=== PATIENT | male | born 1985 | race Two or more races ===

== ENCOUNTER 2023-01-24 15:05 | Outpatient (REF) | payer MEDICAID, SELFPAY ==
[2023-01-24 18:09] LABS: Anion Gap 16 (12-20); Blood Urea Nitrogen 11 mg/dL (9-16); Calcium 9.9 mg/dL (8.4-10.2); Carbon Dioxide 24 mmol/L (22-29); Chloride 106 mmol/L (96-108); Estimated Glomerular Filt Rate > 60; Glucose Random 81 mg/dL (60-115); Potassium 4.1 mmol/L (3.3-5.1); Sodium 142 mmol/L (135-145)
== END 2023-01-24 15:06 | disposition home or self-care (01) ==
LOC: HO.HHCL 15:05
PROVIDERS: Visit Provider Internal Medicine Geriatric Medicine
DX: Z01.818 Encounter for other preprocedural examination (principal); M25.561 Pain in right knee; G89.29 Other chronic pain; Z89.231 Acquired absence of right shoulder
CPT/HCPCS: 36415; 80048; 85025; 85610

== ENCOUNTER 2023-01-27 10:04 | Outpatient (REF) | payer MEDICAID, SELFPAY ==
--- NOTE | ~2023-01-27 | XR_ITS ---
EXAMINATION: XR SHOULDER, RIGHT CLINICAL INFORMATION: Right shoulder pain for 2 months. Unable to raise arm. COMPARISON: Right shoulder 07/19/2016. TECHNIQUE: AP external rotation, Grashey, scapular Y, and axillary views of the right shoulder. FINDINGS: The bones and soft tissues are normal. No fracture. Glenohumeral and acromioclavicular alignment is anatomic with normal joint space. No abnormal soft tissue calcifications. XR/XR shoulder RT min 2V IMPRESSION: Normal right shoulder.
== END 2023-01-27 10:05 | disposition home or self-care (01) ==
LOC: HO.HHCX 10:04
PROVIDERS: Visit Provider Internal Medicine Geriatric Medicine
DX: M25.511 Pain in right shoulder (principal)
CPT/HCPCS: 73030

== ENCOUNTER 2023-05-10 11:04 | Outpatient (AMB) | payer MEDICAID, SELFPAY ==
--- NOTE | 2023-05-10 11:21 | MHC.OFFVIS ---
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 The patient states that he injured his shoulder approximately 6 months ago while lifting heavy object. Since that time his symptoms have gotten somewhat worse. He reports weakness with lifting his right hand above shoulder height. He denies any numbness or tingling in either of his upper extremities. He has had injections in the past which gave him minimal relief. He has also tried Tylenol and anti-inflammatory medicines which is only mild relief. Allergies No Known Allergies Allergy (Unverified 05/10/23 11:23) PFSH Surgical History (Updated 05/10/23 @ 11:36 by FRANCES Melendez) Hx of right knee surgery Social History (Updated 05/10/23 @ 11:35 by FRANCES Melendez) Patient Tobacco Use Status: Never used Tobacco Substance Use Type: Marijuana Current occupational status: unemployed Physical Exam Vital Signs: BMI result Body Mass Index 33.0 Const Other: Well-nourished well-developed very friendly male awake alert and oriented x3 in no acute distress Extrem Other: Bilateral upper extremity examination shows good capillary refill, no skin lesions noted, normal sensation light touch Right shoulder examination shows slightly decreased range of motion when compared to his left shoulder, 4+ out of 5 strength with supraspinatus testing, tenderness over his acromioclavicular joint, no instability Results Reviewed Results Reviewed: X-rays of the patient's right shoulder show moderate acromioclavicular joint narrowing, a type 2 acromion, no acute bony abnormalities Assessment & Plan Assessment & Plan (1) Right shoulder pain: Code(s): M25.511 - Pain in right shoulder Plan: Mr. Vaughn presents with right shoulder pain due to impingement syndrome, possible rotator cuff tearing and possible acromioclavicular joint sprain. Activity modifications were discussed at length with the patient. We will hold off on an MRI for now. He will contact me prior to his follow-up appointment in 2-3 months should his symptoms worsen in any way. If his weakness continues in the future I will order an MRI to further evaluate the status of his rotator cuff tendons. Feel free to call me at any time should questions regarding his orthopedic management arise. Thank you very much for asking me to see this very friendly gentleman. I spent 22 minutes in reviewing the patient's records and imaging studies, seeing the patient and documenting in the medical record. Coding Level of Care Code New Pt Level 2 (74441) Diagnoses Right shoulder pain M25.511
[2023-05-10 11:23] VITALS: BMI 33.0
== END 2023-05-10 12:03 | disposition home or self-care (01) ==
PROVIDERS: PCP Internal Medicine Geriatric Medicine; Visit Provider Orthopaedic Surgery
DX: M25.511 Pain in right shoulder (principal)
CPT/HCPCS: 99202

== ENCOUNTER → 2023-05-10 11:04 | Outpatient (BNVA) | payer MEDICAID, SELFPAY | PROVIDERS: PCP Internal Medicine Geriatric Medicine; Visit Provider Orthopaedic Surgery | DX: M25.511 Pain in right shoulder (principal) | CPT/HCPCS: 99202 ==

== ENCOUNTER 2023-05-30 10:15 | Outpatient (REF) | payer MEDICAID, SELFPAY ==
[2023-05-30 11:46] LABS: Alanine Aminotransferase 13 U/L (0-40); Albumin Level 4.2 g/dL (3.5-5.0); Alkaline Phosphatase 68 U/L (39-117); Anion Gap 11 (12-20); Aspartate Amino Transferase 14 U/L (5-37); Bilirubin Total 0.5 mg/dL (0.0-1.0); Blood Urea Nitrogen 15 mg/dL (9-16); Calcium 9.6 mg/dL (8.4-10.2); Carbon Dioxide 27 mmol/L (22-29); Chloride 105 mmol/L (96-108); Cholesterol 181 mg/dL (<200); Estimated Glomerular Filt Rate > 60; Glucose Random 90 mg/dL (60-115); HDL Cholesterol 38 mg/dL (>40); LDL Cholesterol Calculated 131 mg/dL (<100); Potassium 4.3 mmol/L (3.3-5.1); Sodium 139 mmol/L (135-145); Total Protein 7.3 g/dL (6.5-8.0); Triglycerides 61 mg/dL (<150)
[2023-05-30 11:52] LABS: HBsAGNum1 0.35 S/CO (0.00-0.99); Hepatitis B Surface Antigen Negative (Negative)
[2023-05-30 11:55] LABS: HBS Num1 95.84 mIU/mL (0-7.99); HBc Num1 0.07 S/CO (0.00-0.79); HIV AB/AG Nonreactive (Nonreactive); HIV Num 1 0.05 S/CO (0.00-0.99); Hepatitis B Core Antibody Nonreactive (Nonreactive); ~HepC Num1 0.03 S/CO (0.00-0.79); ~Hepatitis B Surface Antibody REACTIVE (Nonreactive); ~Hepatitis C Antibody Nonreactive (Nonreactive)
[2023-05-30 12:53] LABS: CT PCR NOT DETECTED (Not Detect.); NG PCR NOT DETECTED (Not Detect.)
[2023-05-31 14:52] LABS: RPR Rapid Plasma Reagin NON-REACTIVE (NON-REACTIVE)
== END 2023-05-30 10:16 | disposition home or self-care (01) ==
LOC: HO.HHCL 10:15
PROVIDERS: Visit Provider Internal Medicine Geriatric Medicine
DX: Z00.00 Encounter for general adult medical examination without abnormal findings (principal); Z11.3 Encounter for screening for infections with a predominantly sexual mode of transmission; Z13.1 Encounter for screening for diabetes mellitus; Z13.220 Encounter for screening for lipoid disorders; G89.29 Other chronic pain; M25.561 Pain in right knee
CPT/HCPCS: 0353U; 36415; 80053; 80061; 86592; 86704; 86706; 86803; 87340; 87389

== ENCOUNTER 2023-06-21 10:18 | Outpatient (AMB) | payer MEDICAID, SELFPAY ==
--- NOTE | 2023-06-21 10:29 | MHC.OFFVIS ---
Intake Vital Signs 06/21/23 10:33 Height 5 ft 10 in Weight 230 lb BMI 33.0 Intake Visit Reasons: ov- right shoulder pain Intake Note: Alina 38 year old male presents today with complaints of right shoulder pain and weakness. The patient states that he injured his shoulder approximately 8 months ago while lifting heavy object. Since that time his symptoms have gotten worse in spite of continued non operative treatments. He reports weakness with lifting his right hand above shoulder height. He denies any numbness or tingling in either of his upper extremities. He has had injections in the past which gave him minimal relief. He has also tried Tylenol and anti-inflammatory medicines which is only mild relief. He has done physical therapy for 12 weeks over the last 6 months which aggravated his pain. Allergies No Known Allergies Allergy (Unverified 06/21/23 10:33) Medication List - Last Reconciled 06/21/23 by Jorge Shaikh MD No Known Home Meds PFS Surgical History Hx of right knee surgery Social History Patient Tobacco Use Status: Never used Tobacco Substance Use Type: Marijuana Current occupational status: unemployed Physical Exam Vital Signs: BMI result Body Mass Index 33.0 Const Other: Well-nourished well-developed very friendly male awake alert and oriented x3 in no acute distress Extrem Other: Bilateral upper extremity examination shows good capillary refill, no skin lesions noted, normal sensation light touch Right shoulder examination shows decreased range of motion when compared to his left shoulder, 4+ out of 5 strength with supraspinatus testing, positive impingement signs, tenderness over his acromioclavicular joint, no instability Results Reviewed Results Reviewed: X-rays of the patient's right shoulder show severe acromioclavicular joint narrowing, a type 2 acromion, no acute bony abnormalities Assessment & Plan Assessment & Plan (1) Right shoulder pain: Code(s): M25.511 - Pain in right shoulder Plan Mr. Vaughn presents with progressively worsening right shoulder pain and weakness possibly due to a full-thickness rotator cuff tear. Thus, I will send the patient for an MRI of his right shoulder for further evaluation. I will see him back once the MRI is completed to discuss the findings and treatment options. He will continue with his activity modifications in the meantime. Feel free to call me at any time should questions regarding his orthopedic management arise. I spent 22 minutes in reviewing the patient's records and imaging studies, seeing the patient and documenting in the medical record. Orders: Orders MR shoulder RT wo con Today M25.511 - Pain in right shoulder Coding Level of Care Code Est Pt Level 2 (55225) Diagnoses Right shoulder pain M25.511
[2023-06-21 10:33] VITALS: BMI 33.0
== END 2023-06-21 10:46 | disposition home or self-care (01) ==
PROVIDERS: PCP Internal Medicine Geriatric Medicine; Visit Provider Orthopaedic Surgery
DX: M25.511 Pain in right shoulder (principal)
CPT/HCPCS: 99212

== ENCOUNTER → 2023-06-21 10:18 | Outpatient (BNVA) | payer MEDICAID, SELFPAY | PROVIDERS: PCP Internal Medicine Geriatric Medicine; Visit Provider Orthopaedic Surgery | DX: M25.511 Pain in right shoulder (principal) | CPT/HCPCS: 99212 ==

== ENCOUNTER 2023-09-08 08:48 | Outpatient (REF) | payer MEDICAID, SELFPAY | END 2023-09-08 08:49 | disposition home or self-care (01) | LOC: HO.MRI 08:48 | PROVIDERS: PCP Internal Medicine Geriatric Medicine; Visit Provider Orthopaedic Surgery | DX: Z13.89 Encounter for screening for other disorder (principal) ==

== ENCOUNTER 2023-10-27 10:50 | Outpatient (AMB) | payer MEDICAID, SELFPAY ==
--- NOTE | 2023-10-27 10:57 | A.OFFVIS_ITS ---
Intake Vital Signs 10/27/23 10:58 Height 5 ft 10 in Weight 230 lb BMI 33.0 Intake Visit Reasons: Right Shoulder MRI Review- N/S last appt Intake Note: Alina 38 year old male presents today with complaints of right shoulder pain. The patient states that he injured his shoulder approximately 10 months ago while lifting heavy object. Since that time his symptoms have gotten worse in spite of continued non operative treatments. He reports mild weakness with lifting his right hand above shoulder height. He denies any numbness or tingling in either of his upper extremities. He has had injections in the past which gave him minimal relief. He has also tried Tylenol and anti-inflammatory medicines which is only mild relief. He has done physical therapy for 12 weeks over the last 6 months which aggravated his pain. Allergies No Known Allergies Allergy (Verified 10/27/23 11:13) Medication List - Last Reconciled 10/28/23 by Jorge Shaikh MD No Known Home Meds [facility] Surgical History Hx of right knee surgery Social History Patient Tobacco Use Status: Never used Tobacco Substance Use Type: Marijuana Current occupational status: unemployed Physical Exam Vital Signs: BMI result Body Mass Index 33.0 Const Other: Well-nourished well-developed very friendly male awake alert and oriented x3 in no acute distress Extrem Other: Bilateral upper extremity examination shows good capillary refill, no skin lesions noted, normal sensation light touch Right shoulder examination shows slightly decreased range of motion when compared to his left shoulder, 4+ out of 5 strength with supraspinatus testing, positive impingement signs, tenderness over his acromioclavicular joint, no instability Results Reviewed Results Reviewed: MRI of the patient's right shoulder show severe acromioclavicular joint narrowing, a type 3 acromion, signal change within the supraspinatus tendon most likely due to rotator cuff tendinosis Assessment & Plan Assessment & Plan (1) Right shoulder pain: Code(s): M25.511 - Pain in right shoulder Plan Mr. Vaughn presents with progressively worsening right shoulder pain due to impingement syndrome, acromioclavicular joint arthritis and rotator cuff tendinosis. I had a lengthy discussion with the patient regarding the treatment options. At this point he has failed continued non operative treatments. The risks and benefits of right shoulder surgery were discussed at length with the patient. The patient wishes to proceed with surgery. Surgery will most likely involve right shoulder diagnostic arthroscopy with distal clavicle excision and acromioplasty. The patient will be scheduled for next available date. He will follow-up as instructed. Feel free to call me at any time should questions reg arding his orthopedic management arise. I spent 22 minutes in reviewing the patient's records and imaging studies, seeing the patient and documenting in the medical record. Coding Level of Care Code Est Pt Level 2 (59505) Diagnoses Right shoulder pain M25.511
[2023-10-27 10:58] VITALS: BMI 33.0
== END 2023-10-27 11:28 | disposition home or self-care (01) ==
PROVIDERS: PCP Internal Medicine Geriatric Medicine; Referring Provider Internal Medicine Geriatric Medicine; Visit Provider Orthopaedic Surgery
DX: M25.511 Pain in right shoulder (principal)
CPT/HCPCS: 99213

== ENCOUNTER → 2023-10-27 10:50 | Outpatient (BNVA) | payer MEDICAID, SELFPAY | PROVIDERS: PCP Internal Medicine Geriatric Medicine; Visit Provider Orthopaedic Surgery | DX: M25.511 Pain in right shoulder (principal) | CPT/HCPCS: 99212 ==

== ENCOUNTER 2024-02-22 14:14 | Outpatient (AMB) | payer MEDICAID, SELFPAY ==
--- NOTE | 2024-02-22 14:16 | MHC.OFFVIS ---
Intake Visit Reasons: Preop RT Should 03/02/24 Intake Note: Dev is a 38 year old male who presents with complaints of progressively worsening right shoulder pain. He describes his pain as sharp and severe in nature. Pain has gotten worse over the last year in spite of continued non operative treatments. He has done physical therapy which aggravated his pain. He has also tried Tylenol and anti-inflammatory medicines which gave him minimal relief. He reports mild weakness when lifting his right hand above shoulder height. Most of the pain is along the superior and lateral aspects of his shoulder. He has had injections in the past which gave him no relief. to the office today for a Preop RT Should 03/02/24 . Allergies No Known Allergies Allergy (Verified 02/22/24 14:16) Medication List - Last Reconciled 02/22/24 by Jorge Shaikh MD aripiprazole 5 mg PO BEDTIME celecoxib 200 mg PO BID meclizine 25 mg PO .prn PFSH Surgical History Hx of right knee surgery Social History Patient Tobacco Use Status: Never used Tobacco Substance Use Type: Marijuana Current occupational status: unemployed Physical Exam Const Other: Well-nourished well-developed very friendly male awake alert and oriented x3 in no acute distress Extrem Other: Bilateral upper extremity examination shows good capillary refill, no skin lesions noted, normal sensation light touch Right shoulder examination shows slightly decreased range of motion when compared to his left shoulder, 4+ out of 5 strength with supraspinatus testing, positive impingement signs, tenderness over his acromioclavicular joint, no instability Results Reviewed Results Reviewed: MRI of the patient's right shoulder show severe acromioclavicular joint narrowing, a type 3 acromion, signal change within the supraspinatus tendon most likely due to rotator cuff tendinosis versus partial-thickness tearing Assessment & Plan Assessment & Plan (1) Impingement of right shoulder: Code(s): M25.811 - Other specified joint disorders, right shoulder Category: Medical Plan Mr. Vaughn presents with progressively worsening right shoulder pain due to impingement syndrome and acromioclavicular joint arthritis. I had a lengthy discussion with the patient regarding the treatment options. At this point he has failed continued non operative treatments. The risks and benefits of right shoulder surgery were discussed at length with the patient. The patient wishes to proceed with surgery. Surgery will most likely involve right shoulder diagnostic arthroscopy with arthroscopic distal clavicle excision and acromioplasty. The patient was given a prescription for oxycodone at his preoperative appointment. He will follow up as scheduled. Feel free to call me at any time should questions regarding his orthopedic management arise. I spent 22 minutes in reviewing the patient's records and imaging studies, seeing the patient and documenting in the medical record. Medications: New oxycodone Partial Fill upon patient request. 10 mg (2 x 5 mg) PO Q4H 1 week PRN 40 tabs 0RF pain Coding Level of Care Code Est Pt Level 3 (64378) Diagnoses Impingement of right shoulder M25.811
== END 2024-02-22 14:35 | disposition home or self-care (01) ==
PROVIDERS: PCP Internal Medicine Geriatric Medicine; Referring Provider Internal Medicine Geriatric Medicine; Visit Provider Orthopaedic Surgery
DX: M25.811 Other specified joint disorders, right shoulder (principal)
CPT/HCPCS: 99024

== ENCOUNTER → 2024-02-22 14:14 | Outpatient (BNVA) | payer MEDICAID, SELFPAY | PROVIDERS: PCP Internal Medicine Geriatric Medicine; Visit Provider Orthopaedic Surgery | DX: M25.811 Other specified joint disorders, right shoulder (principal) | CPT/HCPCS: 99212 ==

== ENCOUNTER 2024-03-02 08:49 | Day surgery (SDC) | payer MEDICAID, SELFPAY ==
[2024-02-23 12:34] VITALS: BP 117/65; PULSE 63; RESP 16; O2SAT 97; BMI 33.1
[2024-02-23 13:14] LABS: MANUAL DIFF FLAG NO
[2024-02-23 13:40] LABS: Basophils Absolute Auto 0.1 X10*3/uL (0.0-0.2); Basophils Percent Auto 0.8 % (0-2); Eosinophils Absolute Auto 0.2 X10*3/uL (0.0-0.4); Eosinophils Percent Auto 2.6 % (0-4); Hematocrit 47.8 % (42.0-52.0); Imm Gran Abs Auto 0.01 X10*3/uL (0.00-0.03); Imm Gran Pct Auto 0.2 % (0.0-0.4); Lymphocytes Absolute Auto 2.7 X10*3/uL (1.2-4.9); Lymphocytes Percent Auto 44.3 % (20-40); Mean Corpuscular HGB Conc 33.5 g/dl (31.0-36.0); Mean Corpuscular Hemoglobin 30.8 pg (27.0-33.0); Mean Corpuscular Volume 91.9 fL (80.0-98.0); Mean Platelet Volume 10.1 fL (9.4-12.4); Monocytes Absolute Auto 0.4 X10*3/uL (0.1-1.2); Monocytes Percent Auto 5.8 % (2-11); Neutrophils Absolute Auto 2.8 x10*3/uL (2.0-8.3); Neutrophils Percent Auto 46.3 % (45-73); Platelet Count 280 X10*3/uL (160-400); White Blood Count 6.1 X10*3/uL (4.8-10.8)
[2024-02-23 14:10] LABS: Anion Gap 12 (12-20); Blood Urea Nitrogen 13 mg/dL (9-16); Calcium 10.2 mg/dL (8.4-10.2); Carbon Dioxide 27 mmol/L (22-29); Chloride 106 mmol/L (96-108); Creatinine Clr Calc Pharmacy 123.8; Estimated Glomerular Filt Rate > 60; Glucose Random 76 mg/dL (60-115); Potassium 4.3 mmol/L (3.3-5.1); Sodium 141 mmol/L (135-145)
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
[2024-03-02] VITALS (10 sets, daily range): BP systolic 102–127; BP diastolic 56–73; PULSE 62–71; RESP 12–19; TEMP 36.1–36.6; O2SAT 96–100
--- NOTE | 2024-03-02 09:14 | PC.NURSE ---
last smoked marijuana yesterday
[2024-03-02] MEDS: Lactated Ringers 1,000 ML 100 ML IVCONT (09:28)
--- NOTE | 2024-03-02 10:06 | PC.NURSE ---
timeout completed prior to regional block at 1002 pt tolerated well the block vss
--- NOTE | 2024-03-02 12:03 | P.BOP_ITS ---
Brief Operative Note Date of Service: 03/02/24 Pre-op diagnosis: Right shoulder impingement syndrome, right shoulder acromioclavicular joint arthritis Post-op diagnosis: same Procedure: Right shoulder diagnostic arthroscopy with right shoulder arthroscopic distal clavicle excision, right shoulder arthroscopic acromioplasty Implants: None Surgeon: Jorge Shaikh MD Anesthesia: GETA and regional Was an Research Quality Assurance Analyst used for this Procedure?: No Estimated blood loss (mL): 10 Pathology: none sent Condition: stable Disposition: PACU
--- NOTE | 2024-03-02 12:03 | W.PM.OPN ---
Operative Note Operative Note Date of Service: 03/02/24 Narrative: After the patient was identified as Dev Vaughn and his right shoulder was initialed by myself the patient was brought to the holding area where a right shoulder interscalene regional block was performed by the anesthesiologist in routine fashion. The patient was then brought to the operating room where general anesthesia was induced by the anesthesiologist in routine fashion. The patient was given 2 g of IV Ancef preoperatively for infection prophylaxis. Examination under anesthesia of the patient's right shoulder showed full passive range of motion of the patient's left shoulder when compared to the left. The patient was gently positioned in the beach chair position with all bony prominences well padded. The patient's right shoulder region and upper extremity were prepped and draped in sterile fashion. A formal time-out was completed. A #11 scalpel blade was used to make a posterior portal 2 cm inferior and 1 cm medial to the posterolateral corner of the acromion. Blunt trocar technique was used to enter the glenohumeral joint in routine fashion. An anterior portal was made just lateral to the coracoid process after proper positioning was confirmed using a spinal needle. Diagnostic arthroscopy showed minimal degenerative changes of the glenoid and humeral head articular surfaces. There was no evidence of rotator cuff tearing. There was no evidence of injury to the biceps tendon or its insertion onto the glenoid. There was no inflammation of the anterior joint capsule. The arthroscope was then placed from the posterior portal into the subacromial space. A lateral portal was made 2 fingerbreadths lateral to the anterior lateral corner of the acromion. The ArthroCare Wand was used to ablate soft tissues along the undersurface of the acromion as well as to excise the coracoacromial ligament. There was a sharp spur along the undersurface of the acromion which was removed using the hooded bur. The arthroscope was then placed into the lateral portal and the acromioplasty was completed with the bur in the posterior portal using the posterior aspect of the acromion as a cutting block. The ArthroCare Wand was then brought in through the anterior portal and was used to ablate soft tissues along the acromioclavicular joint and distal clavicle. The posterior and superior ligamentous structures were left intact. A distal clavicle excision of 8 mm was performed using the hooded bur. Any remaining bursal tissue was removed using the arthroscopic shaver. The subacromial space was irrigated and then drained. All arthroscopic instruments were removed. The 3 portals were closed with 3-0 nylon interrupted suture. The subacromial space was injected with Marcaine. Dry sterile dressing was placed over all incisions. The patient's right upper extremity was placed into a sling. The patient was awoken and extubated in the operating room. The patient was transferred to the recovery room in stable condition.
[2024-03-02] MEDS: cefTRIAXone sodium 1 GM in 0.9 % Sodium Chloride 50 ML IV (12:16)
[2024-03-02] MEDS: ondansetron HCL 4 MG/2 ML VIAL IVPUSH (12:23)
== END 2024-03-02 13:45 | disposition home or self-care (01) ==
PROVIDERS: Anesthesiology; PCP Internal Medicine Geriatric Medicine; Visit Provider Orthopaedic Surgery
PROC: (CPT 29805; principal; 2024-03-02 11:00)
DX: M75.41 Impingement syndrome of right shoulder (principal); M19.011 Primary osteoarthritis, right shoulder
CPT/HCPCS: 29824; 29826; 36415; 80048; 85025; J0131; J0171; J0665; J0690; J0696; J1100; J2250; J2405; J2704; J2795; J3010

== ENCOUNTER → 2024-03-02 08:49 | Outpatient (BNV) | payer MEDICAID, SELFPAY | PROVIDERS: PCP Internal Medicine Geriatric Medicine; Visit Provider Orthopaedic Surgery | DX: M75.41 Impingement syndrome of right shoulder (principal); M19.011 Primary osteoarthritis, right shoulder | CPT/HCPCS: 29824; 29826 ==

== ENCOUNTER 2024-03-15 11:17 | Outpatient (AMB) | payer MEDICAID, SELFPAY ==
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
== END 2024-03-15 12:12 | disposition home or self-care (01) ==
PROVIDERS: PCP Internal Medicine Geriatric Medicine; Visit Provider Physician Assistant
DX: M25.811 Other specified joint disorders, right shoulder (principal)
CPT/HCPCS: 99024

== ENCOUNTER → 2024-03-15 11:17 | Outpatient (BNVA) | payer MEDICAID, SELFPAY | PROVIDERS: PCP Internal Medicine Geriatric Medicine; Visit Provider Physician Assistant | DX: M25.511 Pain in right shoulder (principal); Z79.891 Long term (current) use of opiate analgesic | CPT/HCPCS: 99212 ==

== ENCOUNTER 2024-04-17 10:00 | Outpatient (RCR) | payer MEDICAID, SELFPAY ==
--- NOTE | 2024-04-03 13:10 | MHC.PT.EP ---
[facility] [place] Office [place] [facility] [place] [facility] [address] Nadya Martinez [address] [phone] F: [phone] F: [phone] F: [phone] F: [phone] Physical Therapy Plan of Care Date of Evaluation: 04/03/24 Date of Surgery: 03/02/24 Diagnosis: other specified joint disorders, right shoulder ROM, RTC/periscap stabilization Assessment: 38 y/o R-hand dominant male referred to PT s/p R SAD 03/02/24. 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 Examination shows decreased R shoulder A/PROM, decreased R shoulder strength, TTP, pain, and impaired postural awareness. Recommend PT 2x/week for 5 weeks to address impairments, implement HEP and optimize functional mobility. Pt reports using R arm to try and lift, push, and has tried push-ups; Educated pt on precautions and gradually progressing ROM and strength with therapy. 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 Manual therapy to restore motion and function. Therapeutic exercise to improve strength and flexibility. Neuromuscular re-education for posture and balance. Therapeutic activities to return to functional activities of daily living. Electronically signed by: Shayy Pedroza PT Please sign and return to therapist. Thank you for your referral.
--- NOTE | 2024-04-24 10:40 | MHC.PT.DC ---
[facility] [place] Office [place] Office [place] [facility] [address] Nadya Martinez [address] [phone] F: [phone] F: [phone] F: [phone] F: [phone] Physical Therapy Discharge Report Diagnosis: other specified joint disorders, right shoulder ROM, RTC/periscap stabilization Date of Surgery: 03/02/24 Date of Evaluation: 04/03/24 Date of Discharge: 04/24/24 Treatments to Date: 2 Cancellations to Date: 1 No Shows to Date: 3 Discharge Status: Visit Non-compliance Discharge Summary: Pt with 3 no shows and is now d/c d/t poor compliance with PT attendance Electronically signed by: Shayy Pedroza PT Please sign and return to therapist. Thank you for your referral.
== END 2024-04-24 10:40 | disposition home or self-care (01) ==
LOC: HO.PT 10:00
PROVIDERS: PCP Internal Medicine Geriatric Medicine; Visit Provider Physician Assistant
DX: M25.811 Other specified joint disorders, right shoulder (principal)
CPT/HCPCS: 97110; 97161

== ENCOUNTER 2024-11-16 11:32 | Outpatient (REF) | payer MEDICAID, SELFPAY ==
--- NOTE | ~2024-11-16 | XR_ITS ---
EXAMINATION: XR KNEE, LEFT CLINICAL INFORMATION: Chronic left knee pain COMPARISON: None available. TECHNIQUE: Four views of the left knee. FINDINGS: No fracture or joint effusion. Alignment is anatomic. Joint spaces are maintained. No abnormal soft tissue calcification. XR/XR knee LT 4V IMPRESSION: Normal left knee. Electronically signed by: Alcides Lewis MD 11/16/2024 12:21 PM EDT
--- OUTSIDE RECORDS SUMMARY | 2024-11-16 12:31 | XMS_ITS | Clinical Summary ---
Author Organization [address] [facility] Address [address] [place] [address] Phone Care Team Providers Care Apparel Machinery Instructor Name Role Phone Mike Prado MD Primary Care Provider [phone] Surgical History Surgery Date Site/Laterality Comments ANTERIOR CRUCIATE LIGAMENT REPAIR 03/10/2024 Right Right knee ACL reconstruction with allograft. Partial medial meniscectomy. Microfracture of the trochlea. Social History Tobacco Use Types Packs/Day Years Used Date Smoking Tobacco: Never Smokeless Tobacco: Never Alcohol Use Standard Drinks/Week Comments Never 0 (1 standard drink = 0.6 oz pur e alcohol) Sex and Gender Information Value Date Recorded Sex Assigned at Not on file Legal Sex Male 9:03 AM EST Gender Identity Not on file Sexual Orientation Not on file Obstetrics History Last Filed Vital Signs Vital Sign Reading Time Taken Comments Blood Pressure - - Pulse - - Temperature - - Respiratory Rate - - Oxygen Saturation - - Inhaled Oxygen Concentration - - Weight 115 kg (253 lb) 06/23/2023 9:35 AM EST Height 180.3 cm (5' 11 ) 06/23/2023 9:35 AM EST Body Mass Index 35.29 06/23/2023 9:35 AM EST Plan of Treatment Health Maintenance Due Date Last Done Comments Hepatitis B Vaccines (1 of 3 - 19+ 3-dose series) 2005 Cholesterol Screening (Lipid Panel) 06/20/2022 Depression Screening 06/20/2022 HIV Screening 06/20/2022 Hepatitis C Screening 06/20/2022 Social Influencers of Health Screening 06/20/2022 COVID-19 Vaccine (1 - 2023-2 5 season) 2024 Influenza Vaccine (Season Ended) 2025 DTaP,Tdap,and Td Vaccines (2 - Td or Tdap) 11/18/2029 11/19/2019 HIB Vaccines Aged Out No longer eligi ble based on patient's age to complete this topic HPV Vaccines Aged Out No longer eligi ble based on patient's age to complete this topic Hepatitis A Vaccines Aged Out No long er eligible based on patient's age to complete this topic IPV Vaccines Aged Out No longer eligi ble based on patient's age to complete this topic MMR Vaccines Aged Out No longer eligi ble based on patient's age to complete this topic Meningococcal ACWY Vaccine Aged Out N o longer eligible based on patient's age to complete this topic Meningococcal B Vaccine Aged Out No l onger eligible based on patient's age to complete this topic Pneumococcal Vaccine: Pediat rics (0 to 5 Years) and At-Risk Patients (6 to 64 Years) Aged Out No longer eligi ble based on patient's age to complete this topic RSV Immunization Patients Un raheem 20 months Aged Out No longer eligible b ased on patient's age to complete this topic Varicella Vaccines Aged Out No longer eligible based on patient's age to complete this topic Insurance MEDICAID - [place] Care Teams Apparel Machinery Instructor Relationship Specialty Start Date End Date Mike Prado MD [address], [place] PCP - General Pediatrics 06/06/24
--- OUTSIDE RECORDS SUMMARY | 2024-11-16 12:31 | XMS_ITS | Data Portability ---
Author Organization [facility] - [facility], Allergy Address [address] [address] Care Team Providers Care Bus Person Dishwasher Name Role Phone NAME, MICHAEL Primary Care Provider Assessment Encounter Date Assessment Date Assessment LastModified by Organization Details LastModified Time 07/17/2024 07/17/2024 Patient with four day history of sore throat. Exam reveals pronounced erythema of the tonsils and posterior pharynx without exudate. Discussed most sore throats are viral in origin and we do not have the equipment here for rapid strep culture. Options reviewed to include observation versus empiric antibiotic treatment. Patient reports he tolerates antibiotics well and would prefer empiric treatment given tomorrow's holiday. Recommend saltwater gargles. Change toothbrush in 2 days. Hydrate well. Cerumen removed from left ear. No otorrhea today, no evidence of cholesteatoma. Recommend continued dry ear precautions for bilateral TM perforations. Return in 6 months for re-evaluation, sooner with otorrhea or other issues. [email or web address] Not available 07/17/2024 09:22:46 Plan of Treatment Reminders Order Date Submit Date Provider Last Modified By Organization Details Last Modified Time Details Appointments None recorded. Lab None recorded. Referral None recorded. Procedures None recorded. Surgeries None recorded. Imaging None recorded. Medication Orders amoxicillin 500 mg tablet 2023 024 [facility]/Pharmacy #[id number], [address] [facility], [place], [address], 09:11:41 ciprofloxac in 0.3 %-dexametha sone 0.1 % ear drops,suspe nsion 2023 024 [facility]/Pharmacy #[id number], [address] [facility], [place], [address], 4 09:44:14 Patient TargetsNo targets recorded. Patient InstructionsNo instructions recorded. Reason for Referral None Reported. Results Created Date Observation Date Name Description Value Unit Range Abnormal Flag Note LastModifiedBy Organization Detail LastModifiedTime 03/07/2007/25/2018 imagi ng/di agnos tic resul t No observ ation record ed. [email or web address] Not Available 11:50:37 03/07/20 24 08/11/2023 imagi ng/di agnos tic resul t No observ ation record ed. [email or web address] Not Available 11:50:40 03/07/20 24 07/25/2018 audio gram No observ ation record ed. [email or web address] Not Available 11:50:52 Result Notes None recorded. Problems Name Problem SNOMED Code Status Onset Date Resolution Date Notes Provider Name and Address Organization Details Recorded Time Otorrhea of right ear 33313797934 23876 Active 2020 Otorrhea , right ear; Note: Date Diagnose d: 1 4:33 PM (H92.11) Not Available [facility] 4 02:13:35 Dizzines s and giddines s 987921190 Active 2016 Dizzines s and giddines s; Note: Date Diagnose d: 7 11:21 AM (R42) Not Available [facility] 4 02:14:29 Partial loss of ear ossicles 88826084 Active 2016 Partial loss of ear ossicles , left ear; Note: Date Diagnose d: 05/10/20 17 10:05 AM (H74.322 ) Not Available [facility] 4 02:13:45 Choleste atoma of left mastoid process 61496355397 73427 Completed 201602/17/2024 Choleste atoma of mastoid, left ear; Note: Date Diagnose d: 05/10/20 17 9:21 AM (H71.22) Not Available [facility] 4 02:12:44 Tympanos clerosis of right middle ear 10748957736 084195 Active 2016 Tympanos clerosis , right ear; Note: Date Diagnose d: 7 11:23 AM (H74.01) Not Available [facility] 4 02:13:40 Otorrhea of left ear 27691986040 69292 Completed 201602/17/2024 Otorrhea , left ear; Note: Date Diagnose d: 7 11:11 AM (H92.12) Not Available [facility] 4 02:13:29 Central perforat ion of left tympanic membrane 02037393668 58584 Completed 201602/17/2024 Central perforat ion of tympanic membrane , left ear; Note: Date Diagnose d: 06/08/20 17 4:18 PM (H72.02) Not Available [facility] 4 02:12:44 Bilatera l disorder of Eustachi an tubes 79997217916 25343 Active 2019 Other specifie d disorder s of Eustachi an tube, bilatera l; Note: Date Diagnose d: 10/23/2019 9:13 AM (H69.83) Not Available [facility] 4 02:14:27 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 Active 2017 Adhesive left middle ear disease; Note: Date Diagnose d: 05/04/20 18 2:36 PM (H74.12) Not Available [facility] 4 02:14:26 Refracto ry migraine 898450841 Active 2016 Other migraine , intracta ble, without status migraino ramon; Note: Changed from R51 to G43.819 (08/16/19 18 9:20 AM) , Date Diagnose d: 7 11:21 AM (R51) Not Available [facility] 4 02:12:57 Marginal perforat ion of tympanic membrane 46642054 Active 2023 DIMA KIDD MD [address] [place] [address], [facility] [place], [address] , [place] - [facility] 4 09:48:40 Conducti ve hearing loss, bilatera l 637860887 Active 2023 DIMA KIDD MD [address] [facility], [place], [address] , [place] - [facility] 4 09:50:26 Follow-u p visit Active 2017 Medical surveill ance followin g complete d treatmen t; Note: Date Diagnose d: 8 11:31 AM (Z09) Not Available [facility] 4 02:13:29 Impacted cerumen of bilatera l ears 93500422034 79898 Active 2018 Impacted cerumen, bilatera l; Note: Date Diagnose d: 9 9:34 AM (H61.23) Not Available [facility] 4 02:13:32 Mixed conducti ve and sensorin eural hearing loss, bilatera l 193596031 Active 2016 Mixed conducti ve and sensorin eural hearing loss, bilatera l; Note: Date Diagnose d: 04/30/20 17 3:40 PM (H90.6) Not Available [facility] 4 02:13:51 Infectiv e otitis externa of left ear 96761620258 08162 Active 2016 Other infectiv e otitis externa, left ear; Note: Date Diagnose d: 7 11:34 AM (H60.392 ) Not Available [facility] 4 02:13:59 Acute streptoc occal pharyngi tis Active 2023 MIESHA HARTLEY PA-C [address] [facility], [place], [address] , [place] - [facility] 4 09:10:58 Impacted cerumen in left ear 96976201133 28831 Active 2023 MIESHA HARTLEY PA-C [address] [facility], [place], [address] , [place] - [facility] 09:23:04 Problem Notes None recorded. Procedures Surgical History Date Name Laterality Status Provider Name and Address Organization Details Recorded Time 07/17/20 24 Cerumen removal without microscope left completed MIESHA HARTLEY PA-C [address] [place] [address],[facility], [place], [address], [place] - [facility] 07/17/2024 09:11:46 tympanoplasty with mastoidectomy completed Malissa Dominguez [place] - [facility] 12/15/2023 09:29:26 Imaging Results Imaging Date Name Status LastModified by Organiz ation Details LastModified Time 07/25/2018 imaging/diagno stic result completed [email or web address] Information not available 03/07/2024 11:50:37 08/11/2023 imaging/diagno stic result completed [email or web address] Information not available 03/07/2024 11:50:40 07/25/2018 audiogram completed [email or web address] Information not available 03/07/2024 11:50:52 Procedure Notes None recorded. Medical Equipment None Reported. Allergies No known drug allergies Medications Name Sig Start Date Stop Date Status Note LastModified by Organization Details LastModified Time celecoxib 200 mg capsule TAKE 1 CAPSULE BY MOUTH 2 TIMES DAILY. active Not Available Not Available No t Available trazodone 50 mg tablet TAKE 1 TABLET BY MOUTH AT BEDTIME 12/14 completed Not Available Not Available Not Available ibuprofen 800 mg tablet TAKE 1 TABLET BY MOUTH EVERY 8 HOURS NEEDED FOR PAIN FOR 30 DAYS active Not Available Not Available No t Available meloxicam 15 mg tablet TAKE 1 TABLET (15 MG) BY MOUTH ONCE PER DAY. active Not Available Not Available No t Available Ciloxan 0.3 % eye drops 2017 active Medicati on ID: [id number] D uration Value: 3 Prescri bed By Name: Daria Ortega nd Name: Ciloxan Send Method: E-Prescr ibed Sub s Allowed: subs OK Speci al Instruct ion: Instill 4 drops twice a day into affected ear for 3 days Med icationG enericNa me: Ciloxan Not Available Not Available Not Available acetamino phen 500 mg tablet TAKE 2 TABLETS BY MOUTH EVERY 8 HOURS NEEDED FOR PAIN 12/14 completed Not Available Not Available Not Available amoxicill in 500 mg tablet Take 1 tablet twice a day by oral route with meal(s) for 10 days. 2023 active Not Available Not Available Not Avai lable oxycodone -acetamin ophen 5 mg-325 mg tablet TAKE 1 TABLET BY MOUTH EVERY 6 HOURS NEEDED FOR PAIN FOR 7 DAYS active Not Available Not Available No t Available aspirin 325 mg tablet,de layed release TAKE 1 TABLET BY MOUTH ONCE DAILY FOR BLOOD CLOT 12/14 completed Not Available Not Available Not Available meclizine 25 mg tablet TAKE 1 TABLET BY MOUTH IF NEEDED IN THE MORNING AT NOON AND AT BEDTIME FOR DIZZINES S UP TO 10 DAYS 12/14 completed Not Available Not Available Not Available T[place] 10 mg-325 mg tablet 1 tablet by mouth 12/14 completed Medicati on ID: [id number] D uration Value: 3 Prescri bed By Name: Daria Ortega nd Name: Tierra [place] nd Method: E-Prescr ibed Sub s Allowed: subs OK Medic ationGen ericName : Tierra Amarilla Me dication ID: [id number] D uration Value: 3 Prescri bed By Name: Daria Ortega nd Name: T[place] nd Method: E-Prescr ibed Sub s Allowed: subs OK Medic ationGen ericName : T[place] Not Available Not Available Not Available ibuprofen 600 mg tablet TAKE 1 TABLET BY MOUTH EVERY 8 HOURS NEEDED FOR MODERATE PAIN SCALE 4-6 MAX 2400 MG/DAY active Not Available Not Available No t Available T[place]illa 5 mg-325 mg tablet 1-2 tablet by mouth 12/14 completed Medicati on ID: [id number] D uration Value: 7 Brand Name: Tierra Amarilla Se nd Method: E-Prescr ibed Sub s Allowed: subs OK Medic ationGen ericName : Tierra [place]illa Me dication ID: [id number] D uration Value: 7 Brand Name: Tierra Amarilla Se nd Method: E-Prescr ibed Sub s Allowed: subs OK Medic ationGen ericName : Tierra [place]illa Not Available Not Available Not Available amoxicill in 875 mg-potass ium clavulana te 125 mg tablet TAKE 1 TABLET BY MOUTH TWICE A DAY FOR 10 DAYS 12/14 completed Not Available Not Available Not Available oxycodone 5 mg tablet TAKE 2 TABLETS BY MOUTH EVERY 4 HOURS NEEDED FOR PAIN FOR 1 WEEK active Not Available Not Available No t Available TobraDex 0.3 %-0.1 % eye drops,ramon pension 06/02 completed Medicati on ID: [id number] P delmis gut[place]rez By Name: Diana rahman MD Brand Name: TobraDex Send Method: E-Prescr ibed Sub s Allowed: subs OK Speci al Instruct ion: Instill 3 drops in the affect ear BID for 10 days Med icationG enericNa me: TobraDex Not Available Not Available Not Available aripipraz ole 5 mg tablet TAKE 1 TABLET BY MOUTH AT BEDTIME active Not Available Not Available No t Available ciproflox acin 0.3 %-dexamet hasone 0.1 % ear drops,ramon pension Instill 4 drops twice a day by otic route for 10 days. 2023 active Not Available Not Available Not Avai lable chlorhexi dine gluconate 0.12 % mouthwash RINSE HALF OUNCE FOR 1 MINUTES AND SPIT active Not Available Not Available No t Available Senexon-S 8.6 mg-50 mg tablet TAKE 2 TABLETS BY MOUTH AT BEDTIME NEEDED FOR CONSTIPA TION 12/14 completed Not Available Not Available Not Available Vitals Date Recorded Body height Body mass index (BMI) Body weight Provider Name and Address Organization Details Last Updated DateTime 12/15/2023 180.34 cm 34.2 kg/m2 046909.13 g Malissa Dominguez [facility] 12/15/2023 09:26:59 Date Recorded Body height Body mass index (BMI) Body weight Provider Name and Address Organization Details Last Updated DateTime 07/17/2024 180.34 cm 34.2 kg/m2 526194.13 g Mary Bryant [facility] 07/17/2024 09:02:23 Social History None recorded. Functional Status None recorded. Mental Status None recorded. Family History Nothing Reported. Medical History Condition Response Migraines Y Anxiety Y Depression Y Past Encounters Encounter ID Performer Location Encounter Start Date Encounter Closed Date Diagnosis/Indication Diagnosis SNOMED-CT Code Diagnosis ICD10 Code Diagnosis Note [id number] DIMA KIDD MD [facility] [address] [place] [address] 12/15/2023 09:04:44 12/15/2023 09:47:01 Adhesive middle ear disease 6394293 H74.12 Bilateral disorder of Eustachian tubes 6124481871 184512 H69.83 Otorrhea of right ear 10 44325915 190083 H92.11 Patient demonstrat ing mild right otorrhea. Recommend Ciprodex drops twice a day for 10 days. Recommend follow-up with PA in 6 months for routine cleaning and cholesteat derek surveillan ce. Partial lo ss of ear ossicles 21722661 H74.322 Refractory migraine 4238 64894 G43.819 Patient has uncontroll ed migraine. 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 Recommende d identifica tion and eliminatio n of migraine triggers. This may be contributi ng to his dizziness. His positional component may benefit from physical therapy so I renewed a referral to [facility] for physical therapy. Dizziness and giddiness 819480186 R42 Marginal p erforation of tympanic membrane 30800731 H72.2X3 Patient should maintain dry ear precaution s in light of his bilateral tympanic membrane perforatio ns. We discussed that these perforatio ns are more therapeuti c than pathologic in light of his underlying severe eustachian tube dysfunctio n. Conductive hearing loss, bilateral 414609181 H90.0 Last audiogram reviewed with the patient. He has mild conductive hearing loss bilaterall y, right greater than left. Not enough hearing loss to warrant amplificat ion or further interventi on. [id number] MIESHA HARTLEY PA-C [facility] [address] [place] [address] 07/17/2024 08:52:12 07/17/2024 09:09:49 Acute streptococcal pharyngitis 9534504048 J02.0 Marginal p erforation of tympanic membrane 30461223 H72.2X3 Impacted c erumen in left ear 5604036867 371766 H61.22 Adhesive m iddle ear disease 2141269 H74.12 Bilateral disorder of Eustachian tubes 5278963403 650541 H69.83 Health Concerns Section Related Observation LastModified by Organization Detai ls LastModified Time None Recorded Concern Status LastModified by Organization Details LastModified Time None Recorded Advance Directives Directive None Recorded Payers Encounter Date Sequence Insurance Name Policy Number Policy Murillo Covered Member ID Murillo Member ID Guarantor Name 12/15/2023 1 [place] [facility] Dev Sapp [id number] Dev Vaughn 07/17/2024 1 [place] [facility] Dev Sapp [id number] Dev Vaughn Notes Date Note Type Note Provider Name and Address Organization Details Recorded Time 12/15/2023 text/html Patient with his tory of left-sided cholesteatoma who underwent two-stage cholesteatoma surgery in 2017. Postoperatively he had significant retraction of the left tympanic membrane and tympanostomy tube placed to prevent recurrent cholesteatoma. Patient was lost to follow-up between April 2021 and July 2023. Patient last noted to have a perforation at the tube site preventing ventilation to the middle ear space.At his last visit, he was having positional vertigo and was referred to physical therapy for further treatment. Patient did not follow-up on this, but he continues to have positionally induced vertigo. Patient does have chronic severe daily headaches. I gave him migraine literature in the past, but he never really read it were made any lifestyle or dietary changes to reduce migraine symptomatology. DIMA KIDD MD [address] [place] [address], [phone], [facility] - [facility] 12/15/2023 09:52:26 07/17/2024 text/html 39 year old male presents for cerumen removal. Reports no pain, drainage, nor change in hearing. However he reports he has had a sore throat for about 4 days, increasing in severity. Odynophagia but no dysphagia. No muffling of the voice. No trismus. No history of recurrent strep LIBRA ESTEVEZ MD [address] [place] [address], [address], [facility] - [facility] 07/17/2024 17:21:37
== END 2024-11-16 11:33 | disposition home or self-care (01) ==
LOC: HO.HHCX 11:32
PROVIDERS: Visit Provider Internal Medicine Geriatric Medicine
DX: M25.562 Pain in left knee (principal); G89.29 Other chronic pain
CPT/HCPCS: 73564

== ENCOUNTER → 2024-11-16 11:33 | Outpatient (BNV) | payer MEDICAID, SELFPAY | PROVIDERS: Visit Provider Radiology Diagnostic Radiology | DX: M25.562 Pain in left knee (principal) | CPT/HCPCS: 73564 ==

== ENCOUNTER 2025-03-04 11:54 | Outpatient (REF) | payer MEDICAID, SELFPAY ==
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
--- NOTE | ~2025-03-04 | XR_ITS ---
EXAMINATION: XR TIBIA AND FIBULA, RIGHT CLINICAL INFORMATION: PAIN COMPARISON: None available. TECHNIQUE: AP and lateral views of the right tibia and fibula were obtained. FINDINGS: No fracture, dislocation, or suspicious bone lesion. There is normal alignment. There has been prior ACL repair within the imaged right knee. There is no soft tissue abnormality. XR/XR tibia fibula RT 2V IMPRESSION: Normal right tibia and fibula. Electronically signed by: Alcides Lewis MD 03/04/2025 01:07 PM EDT
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
--- OUTSIDE RECORDS SUMMARY | 2025-03-04 13:10 | XMS_ITS | Clinical Summary ---
Author Organization 175 [facility] Address [address] [place] [address] Phone Care Team Providers Care Venereal Disease Control Head Name Role Phone Name, Yoel KENDALL Primary Care Provider [phone] Surgical History Surgery Date Site/Laterality Comments ANTERIOR [...] series) 2005 Cholesterol Screening (Lipid Panel) 06/20/2022 HIV Screening 06/20/2022 Hepatitis C Screening 06/20/2022 Social Influencers of Health Screening 06/20/2022 COVID-19 Vaccine (1 - 2023-2 5 season) 2024 Depression Screening 07/18/2024 Influenza Vaccine (#1) 2025 DTaP,Tdap,and Td Vaccines (2 - Td [...] 5 Years) and At-Risk Patients (6 to 49 Years) Aged Out No longer eligi ble based on patient's age to complete this topic RSV Immunization Patients Un raheem 20 months Aged Out No longer eligible b ased on patient's age to complete this topic Varicella Vaccines Aged Out No longer eligible based on patient's age to complete this topic Insurance [place]ICA[place] - [place] Care Teams Venereal Disease Control Head Relationship Specialty Start Date End Date Name, MD Yoel [address] [place] [id number] PCP - General Internal Medicine 11/20/24
--- OUTSIDE RECORDS SUMMARY | 2025-03-04 13:10 | XMS_ITS | Clinical Summary ---
Author Organization [facility] Address [address] [place] [address] Care Team Providers Care Slide Fasteners Inspector Name Role Phone Unavailable Primary Care Provider Unavailabl e Source Comments PLEASE NOTE, if this patient is a minor, it may be UNLAWFUL to discuss sensitive information that is contained in these records (such as FAMILY PLANNING, MENTAL HEALTH or SUBSTANCE ABUSE) with the minor patient's parent or other person without the patient's specific authorization.[facility] Social History Tobacco Use Types Packs/Day Years Used Date Smoking Tobacco: Never Assessed Sex and Gender Information Value Date Recorded Sex Assigned at Male 01/14/2025 12:39 PM PDT Legal Sex Male 12:39 PM PDT Gender Identity Male 01/14/2025 12:39 PM PDT Sexual Orientation Not on file Plan of Treatment Upcoming Encounters Date Type Department Care Team (Late st Contact Info) Description 03/05/2025 9:00 AM EDT Behavioral Health Visit [facility] [address] [place] [address] [place] [phone] Marc Cheek, HNP [address] [facility] [place] [phone] Health Maintenance Due Date Last Done Comments Anxiety Screening 1986 Diabetes Screening 1986 Hepatitis C Screening 1986 Tobacco Screening 1986 Hypertension Screening (#1) 2004 Imm-Hepatitis B (1 of 3 - 19 + 3-dose series) 2005 [id number] ( season) 2024 022, 08/25/2021 Alcohol and Drug Screen 07/18/2024 Depression Annual Screen 07/18/2024 Imm-Influenza (#1) 2025 Imm-DTaP/Tdap/Td (2 - Td or Tdap) 11/18/2029 020 HIV Screening Completed 05/30/2023 Insurance [facility]
== END 2025-03-04 11:55 | disposition home or self-care (01) ==
LOC: HO.HHCX 11:54
PROVIDERS: Visit Provider Nurse Practitioner Family
DX: S80.12XA Contusion of left lower leg, initial encounter (principal); M25.561 Pain in right knee; M25.562 Pain in left knee; M25.461 Effusion, right knee; M25.462 Effusion, left knee
CPT/HCPCS: 73560; 73590

== ENCOUNTER → 2025-03-04 11:54 | Outpatient (BNV) | payer MEDICAID, SELFPAY | PROVIDERS: Visit Provider Radiology Diagnostic Radiology | DX: S80.911A Unspecified superficial injury of right knee, initial encounter (principal); S80.912A Unspecified superficial injury of left knee, initial encounter; M79.661 Pain in right lower leg; S89.91XA Unspecified injury of right lower leg, initial encounter | CPT/HCPCS: 73560; 73590 ==

== ENCOUNTER 2025-03-08 09:48 | Outpatient (REF) | payer MEDICAID, SELFPAY ==
--- OUTSIDE RECORDS SUMMARY | 2025-03-08 09:51 | XMS_ITS | Clinical Summary ---
Author Organization 175 [facility] Address [address] [place] [address] Phone Care Team Providers Care Director Of Speech Pathology Name Role Phone Name, Yoel KENDALL Primary Care Provider [phone] Surgical History Surgery Date Site/Laterality Comments ANTERIOR [...] 06/23/2023 9:35 AM EST Plan of Treatment Upcoming Encounters Date Type Department Care Team (Late st Contact Info) Description 04/10/2025 10:30 AM EDT Office Visit Orthopedic Surgery [facility] [address] [phone] Milagros Santizo PA [address] [address] Health Maintenance Due Date Last Done Comments [...] topic Insurance [place] - [place] Care Teams Director Of Speech Pathology Relationship Specialty Start Date End Date Name, MD Yoel [address] [place] [address] PCP - General Internal Medicine 11/20/24
--- OUTSIDE RECORDS SUMMARY | 2025-03-08 09:51 | XMS_ITS | Encounter Summary ---
Author Organization [facility] Address [address] [place] [address] Care Team Providers Care Irrigation Teacher Name Role Phone Unavailable Primary Care Provider Unavailabl e Encounter Details Date Type Department Care Team (Late st Contact Info) Description 03/05/2025 / TELEPHONE [facility] [address] [facility] [address] [facility] GAHZALA Butler [id number] Marc Cheek PMHNP [address] [place] [address] [place] [phone] Social History Tobacco Use Types Packs/Day Years Used Date Smoking Tobacco: Never Assessed Sex and Gender Information Value Date Recorded Sex Assigned at Male 01/14/2025 12:39 PM PDT Legal Sex Male 12:39 PM PDT Gender Identity Male 01/14/2025 12:39 PM PDT Sexual Orientation Not on file documented as of this encounter Nursing Notes * JULIETA Wray - 03/05/2025 9:08 AM EDT Patient was scheduled for a Telemedicine visit on 03/05/2025 at 9:08 AM EDT. I attempted to contact the patient 2 times and was unsuccessful. Outcome: pt showering, asked provider to call him back in 20 mins. If patient returns the call, please do the following: Contact Provider via [employer]. Contact Iris. documented in this encounter Plan of Treatment Not on file documented as of this encounter Visit Diagnoses Not on filedocumented in this encounter
[2025-03-08 11:59] LABS: MANUAL DIFF FLAG NO
[2025-03-08 12:05] LABS: Hematocrit 47.1 % (42.0-52.0); Hemoglobin 15.4 g/dl (14.0-18.0); Imm Gran Abs Auto 0.01 X10*3/uL (0.00-0.03); Imm Gran Pct Auto 0.2 % (0.0-0.4); Lymphocytes Absolute Auto 2.4 X10*3/uL (1.2-4.9); Mean Corpuscular HGB Conc 32.7 g/dl (31.0-36.0); Mean Corpuscular Hemoglobin 30.5 pg (27.0-33.0); Mean Corpuscular Volume 93.3 fL (80.0-98.0); NRBC Abs Auto 0.000 X10*3/uL (0.0-0.012); NRBC Pct Auto 0.0 /100WBC (0.0-0.2); Platelet Count 290 X10*3/uL (160-400); Red Blood Count 5.05 X10*6/uL (4.60-5.80); White Blood Count 6.1 X10*3/uL (4.8-10.8)
[2025-03-08 12:39] LABS: Alanine Aminotransferase 15 U/L (0-40); Albumin Level 4.5 g/dL (3.5-5.0); Alkaline Phosphatase 79 U/L (39-117); Anion Gap 12 (12-20); Aspartate Amino Transferase 19 U/L (5-37); Blood Urea Nitrogen 13 mg/dL (9-16); Calcium 9.7 mg/dL (8.4-10.2); Carbon Dioxide 27 mmol/L (22-29); Chloride 106 mmol/L (96-108); Cholesterol 186 mg/dL (<200); Estimated Glomerular Filt Rate > 60; HDL Cholesterol 39 mg/dL (>40); Potassium 4.7 mmol/L (3.3-5.1); Sodium 140 mmol/L (135-145); Total Protein 7.5 g/dL (6.5-8.0); Triglycerides 79 mg/dL (<150)
== END 2025-03-08 09:49 | disposition home or self-care (01) ==
LOC: HO.HHCL 09:48
PROVIDERS: PCP Internal Medicine Geriatric Medicine; Referring Provider Nurse Practitioner Family; Visit Provider Internal Medicine Geriatric Medicine
DX: Z13.1 Encounter for screening for diabetes mellitus (principal); Z13.220 Encounter for screening for lipoid disorders; M25.569 Pain in unspecified knee; M25.469 Effusion, unspecified knee
CPT/HCPCS: 36415; 80053; 80061; 85025